=== PATIENT | female | born 1960 | race African-American/Black ===

== ENCOUNTER 2020-08-27 09:02 | Outpatient (CLI) | payer OTHER, SELFPAY | END 2020-08-27 09:03 | disposition home or self-care (01) | LOC: ANHCOVIDVC 09:03 | PROVIDERS: PCP Podiatrist Foot & Ankle Surgery | DX: Z23 Encounter for immunization (principal) | CPT/HCPCS: 0001A; 91300 ==

== ENCOUNTER 2020-09-17 09:01 | Outpatient (CLI) | payer OTHER, SELFPAY | END 2020-09-17 09:02 | disposition home or self-care (01) | LOC: ANHCOVIDVC 09:01 | PROVIDERS: PCP Podiatrist Foot & Ankle Surgery | DX: Z23 Encounter for immunization (principal) | CPT/HCPCS: 0002A; 91300 ==